=== PATIENT | male | born 1980 | race Caucasian/White ===

== ENCOUNTER 2017-03-07 07:33 | Emergency (ER) | payer SELFPAY ==
[2017-03-07 07:48] VITALS: TEMP 97.7; O2SAT 95
[2017-03-07] MEDS ORDERED: SULFA/TRIMETH 800/160 (DS) TAB 1 EA TAB PO ONE (07:51)
--- NOTE | 2017-03-07 07:54 | ED.PDOC ---
History of Present Illness - General Chief Complaint: Bite: Animal/Insect/Human Stated Complaint: insect bite Time Seen by Provider: 03/07/17 07:49 Source: patient, RN notes reviewed, Vital Signs reviewed Exam Limitations: no limitations - History of Present Illness Initial Comments: Patient reports an insect bite just below his knee cap 5 days ago. Now with surrounding redness, warmth and his knee is starting to hurt with walking. No fever or chills. Otherwise feels well. Timing/Duration: getting worse - over past 5 days Severity: moderate Improving Factors: nothing Worsening Factors: movement - walking Allergies/Adverse Reactions: Allergies NO KNOWN ALLERGY Allergy (Verified 03/07/17 07:48) Home Medications: Ambulatory Orders Blood Pressure Pill 10 mg PO DAILY 10/08/15 Acetaminophen W/ Codeine [Tylenol W/ CODEINE #3] 1 ea PO Q4H PRN #12 12/23/15 Ibuprofen [Motrin Tab] 600 mg PO Q8H PRN #15 tab 12/23/15 Sulfa/Trimeth 800/160 (Ds) Tab [Bactrim DS Tab] 1 ea PO BID #14 tab 03/07/17 Review of Systems - Review of Systems Constitutional: States: no symptoms reported. Denies: chills, fever Musculoskeletal: States: joint pain - R knee with walking 12/16 Skin: States: see HPI, change in color Neurological: States: no symptoms reported All other Systems: No Change from Baseline Past Medical History (General) - Patient Medical History Hx Stroke: No Hx Congestive Heart Failure: No Hx Hypertension: Yes Hx Diabetes: No Hx Cancer: No Hx Hepatitis C: No Hx MRSA: No Surgical History: other - Vaccination History Hx Tetanus, Diphtheria Vaccination: No Hx Influenza Vaccination: No Hx Pneumococcal Vaccination: No - Social History Hx Tobacco Use: Yes Hx Chewing Tobacco Use: Yes Hx Alcohol Use: Yes Hx Substance Use: No Hx Substance Use Treatment: No Hx Depression: No - Activities of Daily Living Hospice Agency (if applicable):: None - Female History Patient is a Female of Child Bearing Age (10 -59 yrs old): No Patient : No Family Medical History - Family History Mother Family History: Unknown Hx Cardiac Disease: Yes - father CABG AT AGE 34 Father Living Status: Physical Exam - Physical Exam General Appearance: Alert, Comfortable, No apparent distress, Well Developed, Well Groomed, Well Hydrated, Well Nourished Respiratory: no respiratory distress Cardiovascular/Chest: normal peripheral pulses Peripheral Pulses: dorsalis pedis,right: 2+ Extremity: normal range of motion, non-tender, normal inspection Neurologic: no motor/sensory deficits, alert, normal mood/affect, oriented x 3 Skin Exam: other - Right anterior lower leg: swollen, tender, erythematous lump just under patella with mild surrounding erythema and warmth. Departure - Departure Clinical Impression: Cellulitis Qualifiers: Site of cellulitis: extremity Site of cellulitis of extremity: lower extremity Laterality: right Qualified Code(s): L03.115 - Cellulitis of right lower limb Time of Disposition: 07:56 Disposition: Discharge to Home or Self Care Condition: Good Departure Forms: ED Discharge - Pt. Copy, Patient Portal Self Enrollment Instructions: DI for Insect Bites and Stings, DI for Cellulitis -- Adult Diet: resume usual diet Activity: increase activity as tolerated Referrals: Kalpesh Zuniga MD [Primary Care Provider] - 1-2 Weeks Prescriptions: Sulfa/Trimeth 800/160 (Ds) Tab [Bactrim DS Tab] 1 ea PO BID #14 tab Home Medications: Ambulatory Orders Blood Pressure Pill 10 mg PO DAILY 10/08/15 Acetaminophen W/ Codeine [Tylenol W/ CODEINE #3] 1 ea PO Q4H PRN #12 12/23/15 Ibuprofen [Motrin Tab] 600 mg PO Q8H PRN #15 tab 12/23/15 Sulfa/Trimeth 800/160 (Ds) Tab [Bactrim DS Tab] 1 ea PO BID #14 tab 03/07/17
[2017-03-07 08:12] VITALS: BP 138/89
== END 2017-03-07 08:06 | disposition home or self-care (01) ==
LOC: ER 07:33
DX: S80.861A Insect bite (nonvenomous), right lower leg, initial encounter (principal); L03.115 Cellulitis of right lower limb; I10 Essential (primary) hypertension; Z82.49 Family history of ischemic heart disease and other diseases of the circulatory system; Z87.891 Personal history of nicotine dependence; W57.XXXA Bitten or stung by nonvenomous insect and other nonvenomous arthropods, initial encounter

== ENCOUNTER 2018-12-30 08:59 | Emergency (ER) | payer SELFPAY ==
[2018-12-30 09:10] VITALS: BP 139/82; TEMP 97.7; O2SAT 98
[2018-12-30] MEDS ORDERED: LIDOCAINE 1% 10 ML VIAL INJ ONE (09:13)
[2018-12-30] MEDS ORDERED: CHLORHEXIDINE GLUCONATE 4 % 15 ML UD TOP ONE (09:13)
[2018-12-30] MEDS ORDERED: NEOMYCIN-BACITRACIN-POLYMYXIN 0.9 GM UD TOP ONE (09:19)
[2018-12-30] MEDS ORDERED: POVIDONE IODINE 10 % 15 ML UD TOP ONE (09:21)
--- NOTE | 2018-12-30 09:54 | ED.PDOC ---
History of Present Illness - General Chief Complaint: Upper Extremity Injury Stated Complaint: laceration to finger Time Seen by Provider: 12/30/18 09:52 Source: patient Exam Limitations: no limitations - History of Present Illness Initial Comments: Was sharpening his pocket knife when it slipped & he cut his finger. 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 No motor or sensory loss. Occurred: just prior to arrival Pain - Upper Extremity: mild: Hand, left Method of Injury: incised Improving Factors: nothing Worsening Factors: nothing Allergies/Adverse Reactions: Allergies NO KNOWN ALLERGY Allergy (Verified 03/07/17 07:48) Home Medications: Ambulatory Orders NK 12/30/18 Review of Systems - Review of Systems Constitutional: States: no symptoms reported Musculoskeletal: States: no symptoms reported Skin: States: see HPI Neurological: States: no symptoms reported Hematologic/Lymphatic: States: no symptoms reported Past Medical History (General) - Patient Medical History Hx Stroke: No Hx Congestive Heart Failure: No Hx Hypertension: No Hx Diabetes: No Hx Cancer: No Hx Hepatitis C: No Hx MRSA: No Surgical History: appendectomy - Vaccination History Hx Tetanus, Diphtheria Vaccination: Yes Hx Influenza Vaccination: No Hx Pneumococcal Vaccination: No Immunizations Up to Date: Yes - Social History Hx Tobacco Use: No Hx Chewing Tobacco Use: Yes Hx Alcohol Use: No Hx Substance Use: No Hx Substance Use Treatment: No Hx Depression: No - Female History Patient : No - Triage Comment ED Triage Comment: Pt ambulated in holding pressure to left pointer finger with towel. Family Medical History - Family History Mother Family History: Unknown Hx Cardiac Disease: Yes - father CABG AT AGE 34 Father Living Status: Physical Exam - Physical Exam General Appearance: Alert, Comfortable, No apparent distress Wrist Exam: normal inspection Hand Exam: normal ROM, laceration, soft tissue tenderness Neuro/Tendon: normal sensation, normal motor functions, normal tendon functions, no evidence tendon injury Mental Status: alert, oriented x 3 Skin Exam: normal color, warm/dry Procedures - Laceration/Wound Repair Left Dorsal Finger Wound Length (cm): 3 - 3 cm Wound's Depth, Shape: into muscle, linear Wound Explored: no foreign body removed Irrigated w/ Saline (cc's): 50 Betadine Prep?: Yes Anesthesia: 1% Lidocaine Volume Anesthetic (cc's): 3 Wound Repaired With: sutures Suture Size/Type: 3:0, prolene Number of Sutures: 7 Layer Closure?: No Sterile Dressing Applied?: No Splint Applied?: No Sling Applied?: No Departure - Departure Clinical Impression: Finger laceration Qualifiers: Encounter type: initial encounter Finger: index finger Damage to nail status: without damage Foreign body presence: without foreign body Laterality: left Qualified Code(s): S61.211A - Laceration without foreign body of left index finger without damage to nail, initial encounter Time of Disposition: 09:53 Disposition: Discharge to Home or Self Care Condition: Good Departure Forms: ED Discharge - Pt. Copy, Patient Portal Self Enrollment Instructions: Laceration Repair With Stitches (DC) Referrals: Kalpesh Zuniga MD [Primary Care Provider] - 01/07/19 Home Medications: Ambulatory Orders NK 12/30/18
== END 2018-12-30 09:59 | disposition home or self-care (01) ==
LOC: ER 08:59
DX: S61.211A Laceration without foreign body of left index finger without damage to nail, initial encounter (principal); W26.0XXA Contact with knife, initial encounter; Z87.891 Personal history of nicotine dependence; Y92.9 Unspecified place or not applicable